=== PATIENT | female | born 1980 | race Caucasian/White ===

== ENCOUNTER 2017-05-16 04:40 | Emergency (ER) | payer MEDICAID, OTHER ==
[2017-05-16] MEDS ORDERED: Promethazine 25 MG in Sodium Chloride 0.9% 50 ML IV ONE ×7 (05:08→12:30)
[2017-05-16] MEDS ORDERED: HYDROmorphone 1 MG/ML Syringe IVPUSH ONE ×2 (05:09→07:38)
[2017-05-16] MEDS ORDERED: Sodium Chloride 0.9% 1,000 ML IV SCH ×2 (05:30→07:00)
--- NOTE | 2017-05-16 06:09 | EDM.PDOC ---
<Praveena García - Last Filed: 05/16/17 12:09> ED HPI GENERAL MEDICAL PROBLEM - General Chief Complaint: Abdominal Pain Stated Complaint: VOMITING Time Seen by Provider: 05/16/17 05:02 - Related Data Allergies Allergy/AdvReac Type Severity Reaction Status Date / Time adhesive tape Allergy Hives Verified 05/16/17 06:10 ciprofloxacin Allergy Hives Verified 05/16/17 06:10 clomipramine Allergy Seizure Verified 05/16/17 06:10 dexamethasone [From Ciprodex] Allergy Muscle Verified 05/16/17 06:10 Weakness eszopiclone Allergy Hallucinati Verified 05/16/17 06:10 ons fentanyl Allergy Headache Verified 05/16/17 06:10 levofloxacin [From Levaquin] Allergy Joint Pain Verified 05/16/17 06:10 metoclopramide [From Reglan] Allergy Hallucinati Verified 05/16/17 06:10 ons olanzapine [From Zyprexa] Allergy Hallucinati Verified 05/16/17 06:10 ons prednisone Allergy Hallucinati Verified 05/16/17 06:10 ons prochlorperazine Allergy Other Verified 05/16/17 06:11 [From Compazine] tobramycin Allergy Hives Verified 05/16/17 06:10 liquid adhesive Allergy Rash Uncoded 05/16/17 06:10 Home Meds: Home Meds Acetaminophen [Tylenol Extra Strength] 1,000 mg PO Q8H 05/16/17 [History] Amitriptyline HCl 50 mg PO BEDTIME 05/16/17 [History] Estradiol [Climara] 1 each TD ASDIRECTED 05/16/17 [History] HYDROmorphone [Dilaudid 1 MG/ML Soln] 0.2 - 0.5 mg SL Q8H 05/16/17 [History] Hyoscyamine [Hyomax-SL] 0.125 mg SL Q4H PRN 05/16/17 [History] LORazepam 1 mg PO Q8H 05/16/17 [History] Mercaptopurine [Purixan] 50 mg PO DAILY 05/16/17 [History] Mirtazapine 15 mg PO BEDTIME 05/16/17 [History] Ondansetron [Zofran ODT] 4 mg PO TID 05/16/17 [History] Pantoprazole Sodium [Protonix IV] 40 mg IV DAILY 05/16/17 [History] Promethazine HCl 25 mg PO Q6H 05/16/17 [History] Scopolamine [Transderm-Scop] 1 patch TD Q3D 05/16/17 [History] Sennosides/Docusate Sodium [Senna-Docusate Sodium] 1 each PO BID PRN 05/16/17 [ History] diphenhydrAMINE HCl [Diphenhydramine HCl] 25 - 50 mg IV Q8H PRN 05/16/17 [ History] Course - Vital Signs Last Recorded V/S: Last Vital Signs Temp 37.1 C 05/16/17 06:50 Pulse 77 05/16/17 06:50 Resp 16 05/16/17 06:50 BP 136/62 05/16/17 06:50 Pulse Ox 100 05/16/17 06:50 - Orders/Labs/Meds Labs: Laboratory Tests 05/16/17 05/16/17 05/16/17 Range/Units 05:00 05:17 05:17 WBC 7.0 (4.5-11.0) K/uL RBC 4.44 (3.30-5.50) M/uL Hgb 13.1 (12.0-15.0) g/dL Hct 38.3 (36.0-48.0) % MCV 86 (80-98) fL MCH 30 (27-31) pg MCHC 34 (32-36) % Plt Count 70 L (150-400) K/uL Neut % (Auto) 72 H (36-66) % Lymph % (Auto) 19 L (24-44) % [place] % (Auto) 7 H (2-6) % Eos % (Auto) 2 (2-4) % Baso % (Auto) 1 (0-1) % Sodium 142 (140-148) mmol/L Potassium 3.2 L (3.6-5.2) mmol/L Chloride 106 (100-108) mmol/L Carbon Dioxide 21 (21-32) mmol/L Anion Gap 18.2 H (5.0-14.0) mmol/L BUN 20 H (7-18) mg/dL Creatinine 1.0 (0.6-1.0) mg/dL Est Cr Clr Drug Dosing 63.43 mL/min Estimated GFR (MDRD) > 60 (>60) Glucose 122 H (74-106) mg/dL Calcium 9.2 (8.5-10.1) mg/dL Total Bilirubin 0.5 (0.2-1.0) mg/dL AST 37 (15-37) U/L ALT 26 (12-78) U/L Alkaline Phosphatase 104 (46-116) U/L Total Protein 8.0 (6.4-8.2) g/dL Albumin 4.0 (3.4-5.0) g/dL Globulin 4.0 H (2.3-3.5) g/dL Albumin/Globulin Ratio 1.0 L (1.2-2.2) Urine Color Yellow Urine Appearance Cloudy Urine pH 6.5 (4.5-8.0) Ur Specific [place] 1.015 (1.008-1.030) Urine Protein Negative (NEGATIVE) mg/dL Urine Glucose (UA) Normal (NEGATIVE) mg/dL Urine Ketones Negative (NEGATIVE) mg/dL Urine Occult Blood Moderate (NEGATIVE) Urine Nitrite Positive H (NEGATIVE) Urine Bilirubin Negative (NEGATIVE) Urine Urobilinogen Normal (NORMAL) mg/dL Ur Leukocyte Esterase Moderate (NEGATIVE) Urine RBC 10-20 H (0-5) Urine WBC 20-30 H (0-5) Ur Epithelial Cells Not seen Amorphous Sediment Not seen Urine Bacteria Many Urine Mucus Few Meds: Medications Discontinued Medications Generic Name Dose Route Start Last Admin Trade Name Freq PRN Reason Stop Dose Admin Diphenhydramine HCl 25 mg 05/16/17 10:00 05/16/17 10:25 Benadryl IVPUSH 05/16/17 10:01 25 mg ONETIME ONE Administration Hydromorphone HCl 1 mg 05/16/17 05:09 05/16/17 05:50 Dilaudid IVPUSH 05/16/17 05:10 1 mg ONETIME ONE Administration Hydromorphone HCl 1 mg 05/16/17 05:12 05/16/17 12:13 Dilaudid IVPUSH 1 mg Q15M PRN Administration Abdominal Pain Hydromorphone HCl 1 mg 05/16/17 07:38 05/16/17 08:31 Dilaudid IVPUSH 05/16/17 07:39 1 mg ONETIME ONE Administration Hydromorphone HCl 0.5 mg 05/16/17 13:19 09/04/17 13:22 Dilaudid IVPUSH 05/16/17 13:20 0.5 mg ONETIME ONE Administration Promethazine HCl 25 mg/ Sodium 51 mls @ 200 mls/hr 05/16/17 05:08 05/16/17 05 :53 Chloride IV 05/16/17 05:23 200 mls/hr ONETIME ONE Administration Sodium Chloride 1,000 mls @ 999 mls/hr 05/16/17 05:30 05/16/17 05:50 Normal Saline IV 999 mls/hr ASDIRECTED DEB Administration Sodium Chloride 1,000 mls @ 999 mls/hr 05/16/17 07:00 05/16/17 07:02 Normal Saline IV 999 mls/hr ASDIRECTED DEB Administration Promethazine HCl 25 mg/ Sodium 51 mls @ 200 mls/hr 05/16/17 07:02 Chloride IV 05/16/17 07:17 ONETIME ONE Promethazine HCl 25 mg/ Sodium 51 mls @ 200 mls/hr 05/16/17 07:30 05/16/17 07 :31 Chloride IV 05/16/17 07:45 200 mls/hr ONETIME ONE Administration Ceftriaxone Sodium 1 gm/ 50 mls @ 100 mls/hr 05/16/17 10:01 Sodium Chloride IV 05/16/17 10:30 ONETIME ONE Ceftriaxone Sodium 1 gm/ 50 mls @ 100 mls/hr 05/16/17 10:15 05/16/17 10:51 Sodium Chloride IV 05/16/17 10:44 100 mls/hr ONETIME ONE Administration Promethazine HCl 25 mg/ Sodium 51 mls @ 200 mls/hr 05/16/17 12:30 Chloride IV 05/16/17 12:45 ONETIME ONE Promethazine HCl 25 mg/ Sodium 51 mls @ 200 mls/hr 05/16/17 12:30 05/16/17 12 :40 Chloride IV 05/16/17 12:45 200 mls/hr ONETIME ONE Administration Lorazepam 0.5 mg 05/16/17 08:17 05/16/17 08:35 Ativan IVPUSH 05/16/17 08:18 0.5 mg ONETIME ONE Administration Lorazepam 0.5 mg 05/16/17 09:57 05/16/17 10:05 Ativan IVPUSH 05/16/17 09:58 0.5 mg ONETIME ONE Administration Lorazepam 0.5 mg 05/16/17 12:10 05/16/17 12:18 Ativan IVPUSH 05/16/17 12:11 0.5 mg ONETIME ONE Administration Scopolamine 1.5 mg 05/16/17 09:01 05/16/17 09:31 Transderm-Scop TRDERM 05/16/17 09:02 1.5 mg Q72H ONE Administration - Re-Assessments/Exams Free Text/Narrative Re-Assessment/Exam: 05/16/17 10:02 pt was evaluated by Dr Rasmussen and he felt like the port should be replaced. He reccommended we do a cat scan of the abdoman without contrast. He thought she should call [facility] regarding replacement of the port. She was given rocephen 1 gm iv for her uti. She will be given ativan a total of 1 mg for nausea. A scoplamine patch was started to se if that would help the nausea. A cat scan of the abdoman was done which did not reveal a obstruction or any large masses. 05/16/17 12:0 Departure - Departure Time of Disposition: 12:11 Disposition: Home, Self-Care 01 Condition: Fair Clinical Impression: Dehydration, Crohns disease, Portacath in place, Nausea and vomiting - Discharge Information Instructions: Dehydration, Adult, [id number] Referrals: PCP,None [Primary Care Provider] - Forms: ED Department Discharge Care Plan Goals: send a copy of her lab work with the pt. Pt will go from here to the Er at the [facility] to be assess for the replacement of her portacath and on going treatmnt of her UTI( pt was given rocephen 1gm in Er . ), She has on going nausea which will need further treatment. If any questions call [facility] in [facility] [phone] ER <Juan Daniel Goss - Last Filed: 06/10/17 08:19> ED HPI GENERAL MEDICAL PROBLEM - General Source of Information: Reports: Patient History Limitations: Reports: Physical Impairment (Very difficult to get a history from this patient because she is constantly retching and dry heaving into a waste basket. She is moaning in pain) - History of Present Illness INITIAL COMMENTS - FREE TEXT/NARRATIVE: The patient's symptoms started about 3 AM yesterday. She complains of pain all over. She complains of nausea and vomiting. This lady has a history of Crohn's disease she's had multiple surgeries in ileostomy and many other problems. She has a port which is accessed. She gave herself some IV Zofran this morning but didn't seem to help any. She takes pain medications frequently but is certain that she is not in a withdrawal. She complains that the port is leaking because it's been accessed so much Treatments HEAD WAITER: Reports: Other (see below) Other Treatments HEAD WAITER: IV zofran Abdomen Pain Score (Numeric/FACES): 10 Past Medical History Gastrointestinal History: Reports: Other (See Below) (Crohn's disease. She's had multiple surgeries and believe she has an ileostomy) Social & Family History - Family History Family Medical History: Unobtainable - Alcohol Use Alcohol Use History: No ED ROS GENERAL - Review of Systems Review Of Systems: Unable To Obtain ED EXAM, GI/ABD - Physical Exam Exam: See Below Exam Limited By: Physical Impairment (Nearly impossible to examine this lady initially because she is constantly vomiting or dry heaving. Obviously in a great deal of pain) General Appearance: Alert, Severe Distress (this patient is obviously in severe pain she is constantly having dry heaves. The exam is severely limited because of her pain and dry heaves) Eyes: Bilateral: Normal Appearance Respiratory/Chest: Lungs Clear, Other (there appears to be a Port-A-Cath in the right infraclavicular area) Cardiovascular: Regular Rate, Rhythm GI/Abdominal Exam: Non-Tender (moderately tender all over), Other (there is what appears to be an ileostomy) Extremities: Normal Inspection Neurological: Alert Psychiatric: Tearful Skin Exam: Warm, Dry Course - Re-Assessments/Exams Free Text/Narrative Re-Assessment/Exam: 05/16/17 07:39 We were unable to use the patient's port for any medications. A peripheral IV was eventually started in a very small vessel and only with great difficulty. We gave the lady IV Dilaudid 1 mg and then be gave began an infusion of Phenergan 25 mg IV. She received multiple doses of Dilaudid. The Dilaudid seemed to help more than anything. Eventually she has received a second 25 mg dose of Phenergan which is running and right now. She is receiving another dose of Dilaudid. I've asked to see her about the port. We need to be able to use the port in order to do contrast infusion for an abdominal CT. The patient noted that the right side of her abdomen seems to be really swollen and hard today so it's possible she may be having an obstruction. The case was discussed with Dr. Praveena García who is taking over care as of 0 [phone].
[2017-05-16] MEDS: HYDROmorphone 1 MG/ML Syringe IVPUSH PRN ×4 (06:15→12:13)
[2017-05-16 07:26] VITALS: BP 136/62
[2017-05-16] MEDS ORDERED: LORazepam 2 MG/ML MDV IVPUSH ONE ×3 (08:17→12:10)
[2017-05-16] MEDS ORDERED: Scopolamine 1.5 MG Transdermal Patch TRDERM ONE (09:01)
[2017-05-16] MEDS ORDERED: diphenhydrAMINE 50 MG/ML SDV IVPUSH ONE (10:00)
[2017-05-16] MEDS ORDERED: cefTRIAXone 1 GM in Sodium Chloride 0.9% 50 ML IV ONE ×2 (10:01→10:15)
--- NOTE | 2017-05-16 12:42 | CONS ---
DATE OF SERVICE: 05/16/2017 REFERRING PHYSICIAN: CONSULTING PHYSICIAN: Jerel Cassidy MD IMPRESSION: Crohn disease, non-functioning PowerPort. PLAN: We will do a CAT scan without IV contrast. She has a followup with her physicians in the [facility] about this PowerPort. This 37-year-old white female has had Crohn's disease essentially all her life. As a child with her complaints of abdominal pain, she was told children do not get Crohn's disease. Her first flare up occurred about age 23. She has had multiple abdominal operations including bladder resection. She has a urostomy in place. She has had multiple PIC lines and central venous access, Port-A-Cath, currently now a PowerPort. The PowerPort is in her right subclavian with the catheter being palpated which goes up into the neck. She comes in with a couple of days of pain in her abdomen with retching and she is not sure when she had her last bowel movement. Her PowerPort is continuously accessed and changed on a weekly basis. It was flushed and noted to leak. We decided change the needle. We obtained a noncoring needle, which was 3/4 of an inch long. The existing port was removed. It appears that there was a hole in her skin, through which this had been accessed. We attempted to access , this was unsuccessful. It felt like the needle was properly placed in the PowerPort, but it would not work. We wanted to access it at this time for IV contrast for her CAT scan of her abdomen and pelvis. We will proceed with a CAT scan of abdomen and pelvis without IV contrast. The noncoring needle was removed and the right subclavian area was covered. Jerel Cassidy MD /[id number] MTDD
[2017-05-16] MEDS ORDERED: HYDROmorphone 0.5 MG/0.5 ML Syringe IVPUSH ONE (13:19)
== END 2017-05-16 13:34 | disposition home or self-care (01) ==
LOC: JP.ED 04:40
DX: E86.0 Dehydration (principal); K50.90 Crohn's disease, unspecified, without complications; Z79.899 Other long term (current) drug therapy; Z88.1 Allergy status to other antibiotic agents; Z88.8 Allergy status to other drugs, medicaments and biological substances; Z91.09 Other allergy status, other than to drugs and biological substances
CPT/HCPCS: 36415; 74176; 80053; 81001; 85025; 87086; 96361; 96365; 96367; 96375; 96376; 99284; A9270; J0696; J1170; J1200; J2060; J2550; J7040; J7050